=== PATIENT | male | born 1955 | race Caucasian/White ===

== ENCOUNTER 2016-12-20 18:29 | Emergency (ER) | payer OTHER ==
[2016-12-20 20:23] VITALS: BP 133/83
--- NOTE | 2016-12-20 20:40 | UC ---
UC General HPI - HPI Summary HPI Summary: complaint of red rash that he noticed approx 1 week ago on his left side has a burning feeling above the rash rash feel painful denies fever and chills more fatigued for the last week - History of Current Complaint Chief Complaint: [employer] Stated Complaint: SKIN COMPLAINT Time Seen by Provider: 12/20/16 20:34 Hx Obtained From: Patient - Allergy/Home Medications Allergies/Adverse Reactions: Allergies Allergy/AdvReac Type Severity Reaction Status Date / Time No Known Allergies Allergy Verified 12/20/16 20:10 Home Medications: Home Medications Pantoprazole TAB (NF) [Protonix TAB (NF)] 20 mg PO DAILY 12/20/16 [History Confirmed 12/20/16] QUEtiapine TAB* [Seroquel TAB*] 25 mg PO SEE INSTRUCTIONS 12/20/16 [History Confirmed 12/20/16] QUEtiapine TAB* [Seroquel TAB*] 50 mg PO BEDTIME 12/20/16 [History Confirmed ] PMH/Surg Hx/FS Hx/Imm Hx Previously Healthy: Yes Psychological History: Bipolar Disorder - Surgical History Surgical History: Yes Surgery Procedure, Year, and Place: Hernia - Family History Known Family History: Positive: Cardiac Disease, Hypertension, Diabetes - Social History Occupation: Employed Part-time Lives: With Family Alcohol Use: Rare Substance Use Type: Marijuana Substance Use Comment - Amount & Last Used: "once in a while" Smoking Status (MU): Current Every Day Smoker Amount Used/How Often: varies "2 cig/day to 1 ppd" Cessation Counseling: Patient Advised to Stop - Immunization History Most Recent Influenza Vaccination: NONE 2015 Most Recent Tetanus Shot: UTD Most Recent Pneumonia Vaccination: N/A Review of Systems Constitutional: Negative Skin: Rash Eyes: Negative ENT: Negative Respiratory: Negative Cardiovascular: Negative Gastrointestinal: Negative Genitourinary: Negative Motor: Negative Neurovascular: Negative Musculoskeletal: Negative Neurological: Negative Psychological: Negative All Other Systems Reviewed And Are Negative: Yes Physical Exam Triage Information Reviewed: Yes Appearance: No Pain Distress, Well-Nourished, Thin Vital Signs: Initial Vital Signs Temp 98.7 F 12/20/16 20:15 Pulse 67 12/20/16 20:15 Resp 18 12/20/16 20:15 BP 133/83 12/20/16 20:15 Pulse Ox 100 06/30/17 20:15 Vital Signs Reviewed: Yes Eyes: Positive: Conjunctiva Clear ENT: Positive: Pharynx normal, TMs normal Neck: Positive: No Lymphadenopathy Respiratory: Positive: Lungs clear, Normal breath sounds, No respiratory distress, No accessory muscle use Cardiovascular: Positive: RRR, No Murmur, Pulses Normal Abdomen Description: Positive: Nontender, Soft Bowel Sounds: Positive: Present Musculoskeletal: Positive: No Edema Neurological: Positive: Alert Psychological Exam: Normal Skin: Positive: rashes - 10 cm x10 cm bullseye rash Course/Dx - Differential Dx - Multi-Symptom Differential Diagnoses: Other - rash, cellulitis, erythema migrans Provider Diagnoses: erythema migrans Discharge - Discharge Plan Condition: Stable Disposition: HOME Prescriptions: DOXYcycline CAP(*) [DOXYcycline 100MG CAP(*)] 100 mg PO BID #42 cap Patient Education Materials: Lyme Disease (ED), Tick Bite (ED) Referrals: [facility] [place] [facility] [Outside] Additional Instructions: Please start antibiotic as directed Increase fluids and rest Take acetaminophen or ibuprofen for fever or pain Please review your discharge instructions. If your symptoms do not improve please call your primary care provider or return to urgent care.
== END 2016-12-20 20:56 | disposition home or self-care (01) ==
LOC: UCCORT 18:29
DX: A26.0 Cutaneous erysipeloid (principal); F17.210 Nicotine dependence, cigarettes, uncomplicated
CPT/HCPCS: 99202; G0463